=== PATIENT | female | born 1965 | race Caucasian/White ===

== ENCOUNTER 2016-08-10 21:27 | Emergency (ER) | payer OTHER ==
[~2016-08-10] VITALS: Ht 165.1 cm; Wt 122.7 kg
[2016-08-10 21:27] VITALS: BP 137/81; PULSE 101; RESP 18; TEMP 98; O2SAT 97
[~2016-08-10 21:27] MED LIST: ASPI81CH CHEW; HYDR-3533 PO; LISI10TA3 PO; LOMO2.5T PO; METF500T PO; METO25TA3 PO; OMEP10CA PO; PROM25TA5 PO
[2016-08-10] MEDS ORDERED: PROM25TA10 PO (21:35)
[2016-08-10] MEDS ORDERED: PREM0.3T2 PO (21:35)
[2016-08-10] MEDS ORDERED: TYLE325T PO (21:36)
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
[2016-08-10] MEDS ORDERED: KETOROLAC TROMETHAMINE 60 MG/2 ML (IM) VIAL IM ONE (23:15)
[2016-08-10] MEDS ORDERED: oxyCODONE/ACETAMINOPHEN 10 MG/325 MG TAB PO ONE (23:15)
[2016-08-10] MEDS ORDERED: PERC5TAB12 PO (23:19)
[2016-08-10 23:24] VITALS: BP 146/64; PULSE 91; RESP 16; O2SAT 97
== END 2016-08-11 00:39 | disposition home or self-care (01) ==
LOC: PHED 21:27
DX: S00.83XA Contusion of other part of head, initial encounter (principal); S00.03XA Contusion of scalp, initial encounter; E11.9 Type 2 diabetes mellitus without complications; I10 Essential (primary) hypertension; K21.9 Gastro-esophageal reflux disease without esophagitis; Y04.0XXA Assault by unarmed brawl or fight, initial encounter; Y93.9 Activity, unspecified; Y92.9 Unspecified place or not applicable; Z79.82 Long term (current) use of aspirin
CPT/HCPCS: 70450; 70486; 96372; 99284; J1885

== ENCOUNTER 2017-01-18 18:49 | Emergency (ER) | payer OTHER ==
[~2017-01-18] VITALS: Ht 165.1 cm; Wt 130.9 kg
[~2017-01-18 18:49] MED LIST changes: +ASPI-516 CHEW; -ASPI81CH CHEW; -HYDR-3533 PO; -LOMO2.5T PO; +PERC5TAB12 PO; +PREM0.3T2 PO; +PROM25TA10 PO; -PROM25TA5 PO; +TYLE325T PO
[2017-01-18 19:00] VITALS: PULSE 96; RESP 16; TEMP 97.7; O2SAT 96
[2017-01-18] MEDS ORDERED: SODIUM CHLOR 0.9% 1000 ML INJ 1,000 ML IV ONE (19:04)
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
[2017-01-18] MEDS ORDERED: KETOROLAC TROMETHAMINE 30 MG/ML (IVP) VIAL IV PUSH ONE (19:15)
[2017-01-18] MEDS ORDERED: MORPHINE SULFATE 4 MG/ML INJ IV PUSH ONE (19:15)
[2017-01-18] MEDS ORDERED: ONDANSETRON HCL 4 MG/2 ML VIAL IV PUSH ONE (19:15)
[2017-01-18] MEDS ORDERED: SODIUM CHLORIDE 0.9% FLUSH 10 ML FLUSH IVF PRN (19:15)
--- NOTE | 2017-01-18 19:37 | RADRPT ---
EXAM DATE/TIME: 01/18/2017 19:12 [facility] COMPARISON: CT ABDOMEN & PELVIS W CONTRAST, January 18, 2016, 19:35. INDICATIONS : Left flank pain with nausea. Prior history of renal stones. ORAL CONTRAST: No oral contrast ingested. RADIATION DOSE: 27.78 CTDIvol (mGy) ; Patient body habitus MEDICAL HISTORY : Renal calculi. Hypertension. Diabetes mellitus type 2.GERD, Hiatal hernia, gastric ulcer SURGICAL HISTORY : Cholecystectomy. lithotripsy ENCOUNTER: Initial ACUITY: 3 days PAIN SCALE: 9/10 LOCATION: Left flank TECHNIQUE: Renal colic protocol. Volumetric scanning of the abdomen and pelvis was performed. Using automated exposure control and adjustment of the mA and/or kV according to patient size, radiation dose was kep t as low as reasonably achievable to obtain optimal diagnostic quality images. DICOM format image da ta is available electronically for review and comparison. FINDINGS: Right side: No calcified stones. No evidence of hydronephrosis. The right ureter is normal in dimension. Left side: Moderately severe hydronephrosis and dilation of the extrarenal pelvis with a 13 mm calcified stone i n the extrarenal pelvis. No additional calcified stones seen. The left ureter is minimally dilated, but no calcified stones seen and no periureteric stranding. Bladder: Nondistended. No calcified stones within the lumen. Other: Steatosis of liver. Cholecystectomy. No dilated loops of small or large bowel. Anteverted uterus. No evidence of free fluid. Bilateral inguinal nodes measure up to 12 mm unchanged from prior exam. CONCLUSION: 12 mm calcified stone in the left extrarenal pelvis with moderately severe hydronephrosis. Wero Parnell MD on January 18, 2017 at 19:32 Board Certified Radiologist. This report was verified electronically.
[2017-01-18 19:43] LABS: BLOOD, URINE MOD (NEG); GLUCOSE,URINE NEG (NEG); KETONE, URINE TRACE mg/dL (NEG); NITRITE,URINE NEG (NEG)
[2017-01-18 19:44] LABS: AUTOMATED NEUTROPHIL # 6.5 TH/MM3 (1.8-7.7); BASOPHIL % 0.2 % (0.0-2.0); EOSINOPHIL # 0.1 TH/MM3 (0-0.4); HEMATOCRIT 36.1 % (35.0-46.0); HEMO FLAGS DIFF FINAL; LYMPH % 24.7 % (9.0-44.0); LYMPHOCYTE # 2.3 TH/MM3 (1.0-4.8); MEAN CELL VOLUME 87.9 FL (80.0-100.0); MEAN CORPUSCULAR HEMOGLOBIN 28.1 PG (27.0-34.0); MONO % 4.8 % (0.0-8.0); NEUT % 69.3 % (16.0-70.0); PLATELET COUNT 288 TH/MM3 (150-450); RED BLOOD COUNT 4.11 MIL/MM3 (4.00-5.30); RED CELL DISTRIBUTION WIDTH 14.5 % (11.6-17.2); WHITE BLOOD COUNT 9.4 TH/MM3 (4.0-11.0)
[2017-01-18 19:49] LABS: URINE COLOR YELLOW (YELLW/STRAW)
[2017-01-18 19:50] LABS: BACTERIA, URINE MANY /hpf; CHLORIDE 110 MEQ/L (98-107); POTASSIUM 4.1 MEQ/L (3.5-5.1); SODIUM (NA) 141 MEQ/L (136-145); SQUAMOUS EPITHELIAL CELL URINE > 8 /hpf (0-5)
[2017-01-18 19:51] LABS: COMMENT (UR) CULTURE INDICATED; CULTURE IF INDICATED CULTURE INDICATED
[2017-01-18 19:53] LABS: ANION GAP 11 MEQ/L (5-15); BICARBONATE 20.2 MEQ/L (21.0-32.0); BLOOD UREA NITROGEN 11 MG/DL (7-18)
[2017-01-18 19:56] LABS: ALT (GPT) 46 U/L (10-53); AST (GOT) 32 U/L (15-37); GLOMERULAR FILTRATION RATE 64 ML/MIN (>89)
[2017-01-18 19:58] LABS: TOTAL BILIRUBIN ADULT 0.2 MG/DL (0.2-1.0)
[2017-01-18 19:59] LABS: ALKALINE PHOSPHATASE 133 U/L (45-117)
[2017-01-18] MEDS ORDERED: KETO10 PO (19:59)
[2017-01-18] MEDS ORDERED: MACR100C2 PO (19:59)
[2017-01-18] MEDS ORDERED: PERC10TA27 PO (19:59)
[2017-01-18] MEDS ORDERED: TAMS5CAP PO (19:59)
[2017-01-18] MEDS ORDERED: cefTRIAXone INJ 1,000 MG in SODIUM CHLORIDE 0.9% INJ 100 ML IV ONE (20:00)
[2017-01-18 21:00] VITALS: BP_SYST 150; BP_DIAS 0; BP_DIAS 90; PULSE 83; RESP 16; O2SAT 97
[2017-01-18 21:30] VITALS: BP 147/85
== END 2017-01-18 21:43 | disposition home or self-care (01) ==
LOC: PHED 18:49
DX: N13.2 Hydronephrosis with renal and ureteral calculous obstruction (principal); R11.0 Nausea; I10 Essential (primary) hypertension; E11.9 Type 2 diabetes mellitus without complications; Z79.01 Long term (current) use of anticoagulants
CPT/HCPCS: 74176; 80053; 81001; 85025; 87086; 96361; 96365; 96375; 99285; J0696; J1885; J2270; J2405; J7030